=== PATIENT | female | born 2000 | race Caucasian/White ===

== ENCOUNTER 2023-12-29 11:09 | Outpatient (AMB) | payer MEDICAID, SELFPAY ==
[2023-12-29 11:26] VITALS: BP 126/62; PULSE 92; O2SAT 100; BMI 29.9
--- NOTE | 2023-12-29 11:26 | MHC.OFFVIS ---
Vital Signs 12/29/23 11:26 Height 5 ft 3 in Weight 169 lb BMI 29.9 BP 126/62 Blood Pressure Location Rt brachial Position Sitting Pulse 92 Pulse Source Pulse Oximeter Pulse Oximetry (%) 100 Oxygen Delivery Method Room Air Intake Visit Reasons: CHRONIC MYOFASCIAL PAIN Intake Note: Pain today 12/18 Principal Investigator Required: No Accompanied by: Self / Same As Patient Allergies duloxetine Allergy (Unknown, Verified 12/29/23 12:29) Depression gabapentin Allergy (Unknown, Verified 12/29/23 12:29) Nausea tamarind Allergy (Unknown, Verified 12/29/23 12:29) Unknown HPI Comments Details: Yas is a very pleasant 23-year-old who presents to the office today for diffuse joint pains. Has been suffering with this pain for 7 years. Started with knee pain and progressively worsened to all of the joints. Recently had blood work done with the PCP, positive [place]. Referred to Rheumatology and also referred to Neurology in [place]. Both of those appointments are pending. Complains of pain to shoulders, elbows, hands, hips, knees, ankles and back. Pain is worse with activity, walking. Currently uses a Rollator walker and has a generic wheelchair but is requesting referral to be fitted for customize wheelchair. States not able to do activities of daily living in recreational activities that involve walking for extended periods of times. This causes too much discomfort so will avoid these activities and stay home instead. Is aware that lack of mobility is worse case scenario and using a wheelchair would be detrimental. States that is not the intention, would just like it to be available on an as needed basis. Suffering mentally and emotionally when they have to avoid activities with her friends and involve lots of walking like going to do or visiting [place]. Patient has a currently attending physical therapy at [facility]. Has one-week left. Reports minimal improvement in symptoms Has tried topical patches, ice, heat, CBD, NSAIDs all without improvement. Tried gabapentin but was unable to tolerate as it caused vertigo. Duloxetine caused depression. In terms of muscle damage condition is described aching, shooting, cramping, stabbing, sharp, tiring, exhausting, tingling, pins and needles Pain is negatively impacting patient's enjoyment of life, general activity, mood, normal work, recreational activities, relationships with people and walking [facility] Medical History (Updated 12/29/23 @ 16:21 by Deysi Gamboa, ANCHORMAN, HAND PRINTED CIRCUIT BOARD ASSEMBLER) OCD (obsessive compulsive disorder) PTSD (post-traumatic stress disorder) Anxiety disorder Social History (Updated 12/29/23 @ 12:53 by Ana Maria Muhammad) Alcohol intake: current Alcohol intake frequency: a few times a month Substance Use Type: Marijuana Review of Systems Const All systems reviewed & are unremarkable except as noted in HPI and below Physical Exam Vital Signs: Last Vital Signs Pulse 92 12/29/23 11:26 BP 126/62 12/29/23 11:26 Pulse Ox 100 12/29/23 11:26 Oxygen Delivery Method Room Air 12/29/23 11:26 BMI result Body Mass Index 29.9 General: awake, alert, oriented. Answers questions appropriately. Fully engaged in examination. Skin: warm, dry, intact HEENT: Normocephalic. Hearing intact. Cardiac: External chest normal in appearance. Respiratory: No cough, audible wheezing or stridor. Abdomen: without gross distension. MS: No obvious swelling or deformities. Able to stand on bilateral tiptoes and bilateral heels.? Able to transition from sit to stand unassisted. Ambulates with bilaterally normal heel strike and toe off 16/18 fibromyalgia tender points positive Neurological: Oriented to person, place, time and situation. Thought process intact. Ambulates with Rollator walker Psychiatric: Appropriate mood and affect. Good judgment and insight. Assessment & Plan Assessment & Plan (1) Myofascial pain syndrome: Code(s): M79.18 - Myalgia, other site Category: Medical (2) POTS (postural orthostatic tachycardia syndrome): Code(s): G90.A - Postural orthostatic tachycardia syndrome [POTS] Category: Medical (3) Polyarthralgia: Code(s): M25.50 - Pain in unspecified joint Category: Medical Plan Patient is a very pleasant 23-year-old adult who presented to the office today for evaluation and management of diffuse polyarthralgia. Continue with PT, aquatherapy and working out at the gym Trial baclofen 5 mg p.o. t.i.d.. Currently it is wheelchair as needed, is requesting referral for custom fitting for a specialized wheelchair. Patient will contact the physical therapy place and have them send over the information for this referral. Lengthy discussion with patient and counseled against the use of wheelchair. Patient like to have this to aid if certain activities of daily living was can not be performed without a wheelchair. States not use on a daily basis and will continue to be physically active. Referral placed to rheumatology for polyarthralgia with positive [place]. Follow up in the office after rheumatology eval, sooner if needed Orders: Referrals Rheumatology Referral M25.50 - Pain in unspecified joint, R76.8 - Other specified abnormal immunological findings in serum Medications: New baclofen 5 mg PO TID 90 tabs 3RF Coding Level of Care Code New Pt Level 4 (27720) Diagnoses Myofascial pain syndrome M79.18 POTS (postural orthostatic tachycardia syndrome) G90.A Polyarthralgia M25.50
== END 2023-12-29 12:13 | disposition home or self-care (01) ==
PROVIDERS: PCP Pediatrics; Referring Provider Pediatrics; Visit Provider Registered Nurse Emergency
DX: M79.18 Myalgia, other site (principal); G90.A Postural orthostatic tachycardia syndrome [POTS]; M25.50 Pain in unspecified joint
CPT/HCPCS: 99204

== ENCOUNTER → 2023-12-29 11:09 | Outpatient (BNVA) | payer MEDICAID, SELFPAY | PROVIDERS: PCP Pediatrics; Referring Provider Pediatrics; Visit Provider Registered Nurse Emergency | DX: M79.18 Myalgia, other site (principal); M25.50 Pain in unspecified joint; G90.A Postural orthostatic tachycardia syndrome [POTS] | CPT/HCPCS: 99202 ==

== ENCOUNTER 2024-02-01 14:59 | Outpatient (AMB) | payer MEDICAID, SELFPAY ==
[2024-02-01 15:08] VITALS: BP 123/80; PULSE 85; O2SAT 100; BMI 30.5
--- NOTE | 2024-02-01 15:08 | A.OFFVIS_ITS ---
Vital Signs 02/01/24 15:08 Height 5 ft 3 in Weight 172 lb BMI 30.5 BP 123/80 Blood Pressure Location Rt brachial Position Sitting Pulse 85 Pulse Source Pulse Oximeter Pulse Oximetry (%) 100 Oxygen Delivery Method Room Air Intake Visit Reasons: Medication Follow Up Allergies duloxetine Allergy (Unknown, Verified 12/29/23 12:29) Depression gabapentin Allergy (Unknown, Verified 12/29/23 12:29) Nausea tamarind Allergy (Unknown, Verified 12/29/23 12:29) Unknown HPI Comments Details: Yas presents back to the office today for follow-up. She has been using the 10s unit with improvement of her pain. But states it makes it difficult as she can only treat 1 area at a time. Endorses pain ?everywhere?. Requesting a letter for work allowing use of wheelchair while there Inquiring about people work the office should have received from seating and mobility. Has been taking baclofen without improvement of her symptoms. She would like to try a different muscle relaxer. Has never attempted acupuncture but would be willing to try. She is not sure if this is covered by her insurance. Prior: Yas is a very pleasant 23-year-old who presents to the office today for diffuse joint pains. Has been suffering with this pain for 7 years. Started with knee pain and progressively worsened to all of the joints. Recently had blood work done with the PCP, positive [place]. Referred to Rheumatology and also referred to Neurology in [place]. Both of those appointments are pending. Complains of pain to shoulders, elbows, hands, hips, knees, ankles and back. Pain is worse with activity, walking. Currently uses a Rollator walker and has a generic wheelchair but is requesting referral to be fitted for customize wheelchair. States not able to do activities of daily living in recreational activities that involve walking for extended periods of times. This causes too much discomfort so will avoid these activities and stay home instead. Is aware that lack of mobility is worse case scenario and using a wheelchair would be detrimental. States that is not the intention, would just like it to be available on an as needed basis. Suffering mentally and emotionally when they have to avoid activities with her friends and involve lots of walking like going to do or visiting [place]. Patient has a currently attending physical therapy at [facility]. Has one-week left. Reports minimal improvement in symptoms Has tried topical patches, ice, heat, CBD, NSAIDs all without improvement. Tried gabapentin but was unable to tolerate as it caused vertigo. Duloxetine caused depression. In terms of muscle damage condition is described aching, shooting, cramping, stabbing, sharp, tiring, exhausting, tingling, pins and needles Pain is negatively impacting patient's enjoyment of life, general activity, mood, normal work, recreational activities, relationships with people and walking [facility] Medical History (Updated 12/29/23 @ 16:21 by Deysi Gamboa FIELD MECHANICAL METER TESTER, UNHAIRING INSPECTOR) OCD (obsessive compulsive disorder) PTSD (post-traumatic stress disorder) Anxiety disorder Social History (Updated 12/29/23 @ 12:53 by Ana Maria Muhammad) Alcohol intake: current Alcohol intake frequency: a few times a month Substance Use Type: Marijuana Review of Systems Const All systems reviewed & are unremarkable except as noted in HPI and below Physical Exam Vital Signs: Last Vital Signs Pulse 85 02/01/24 15:08 BP 123/80 02/01/24 15:08 Pulse Ox 100 02/01/24 15:08 Oxygen Delivery Method Room Air 02/01/24 15:08 BMI result Body Mass Index 30.5 General: awake, alert, oriented. Answers questions appropriately. Fully engaged in examination. Skin: warm, dry, intact HEENT: Normocephalic. Hearing intact. Cardiac: External chest normal in appearance. Respiratory: No cough, audible wheezing or stridor. Abdomen: without gross distension. MS: No obvious swelling or deformities. Able to stand on bilateral tiptoes and bilateral heels.? Able to transition from sit to stand unassisted. Ambulates with bilaterally normal heel strike and toe off 18 fibromyalgia tender points positive Neurological: Oriented to person, place, time and situation. Thought process intact. Ambulates with Rollator walker Psychiatric: Appropriate mood and affect. Good judgment and insight. Assessment & Plan Assessment & Plan (1) Myofascial pain syndrome: Code(s): M79.18 - Myalgia, other site Category: Medical (2) POTS (postural orthostatic tachycardia syndrome): Code(s): G90.A - Postural orthostatic tachycardia syndrome [POTS] Category: Medical (3) Polyarthralgia: Code(s): M25.50 - Pain in unspecified joint Category: Medical Plan Patient is a very pleasant 23-year-old adult who presented to the office today for evaluation and management of diffuse polyarthralgia. Work letter provided allowing use of wheelchair. Review of chart, no paperwork has been received from [employer]. Patient was advised. She will reach out to that company and requested it be recent. Discontinue baclofen. New Rx tizanidine 2 mg p.o. t.i.d. patient advised on cautions for use. Discontinue baclofen before starting this medication. Monitor blood pressure closely. Do not take while driving or with other COMPUTER SUPPORT ANALYST suppressants. Patient will call her insurance company to inquire about acupuncture coverage. She will reach out to our office with a covered acupuncture provider and referral will be sent. All questions and concerns were answered, patient agrees to the plan. Follow up in 2 months, sooner if needed Medications: New tizanidine Monitor blood pressure carefully. No driving while taking this medication. May cause drowsiness. Do not take with alcohol or other COMPUTER SUPPORT ANALYST Depressants. Discontinue use of baclofen before starting this medication. 2 mg PO TID PRN 90 tabs 1RF muscle spasticity Discontinued baclofen Discontinued Reason: More recent result 5 mg PO TID 90 tabs 3RF Coding Level of Care Code Est Pt Level 3 (60030) Diagnoses Myofascial pain syndrome M79.18 POTS (postural orthostatic tachycardia syndrome) G90.A Polyarthralgia M25.50
== END 2024-02-01 15:49 | disposition home or self-care (01) ==
PROVIDERS: PCP Pediatrics; Visit Provider Registered Nurse Emergency
DX: M79.18 Myalgia, other site (principal); G90.A Postural orthostatic tachycardia syndrome [POTS]; M25.50 Pain in unspecified joint
CPT/HCPCS: 99213

== ENCOUNTER → 2024-02-01 14:59 | Outpatient (BNVA) | payer MEDICAID, SELFPAY | PROVIDERS: PCP Pediatrics; Visit Provider Registered Nurse Emergency | DX: M79.18 Myalgia, other site (principal); M25.50 Pain in unspecified joint; G90.A Postural orthostatic tachycardia syndrome [POTS] | CPT/HCPCS: 99212 ==

== ENCOUNTER 2024-10-10 09:56 | Outpatient (AMB) | payer MEDICAID, SELFPAY ==
[2024-10-10 10:02] VITALS: BP 102/60; BMI 31.9
--- NOTE | 2024-10-10 10:02 | MHC.OFFVIS ---
Vital Signs 10/10/24 10:02 Height 5 ft 3 in Weight 180 lb BMI 31.9 BP 102/60 Blood Pressure Location Lt brachial Position Sitting Intake Visit Reasons: Pain increasing/meds FU Cost Accounting Analyst Required: No Allergies duloxetine Allergy (Unknown, Verified 10/10/24 10:04) Depression gabapentin Allergy (Unknown, Verified 10/10/24 10:04) Nausea tamarind Allergy (Unknown, Verified 10/10/24 10:04) Unknown HPI Comments Details: The patient is a 24-year-old female presenting with pain management concerns. She reports chronic pain inadequately managed with her current regimen of tizanidine at 2 mg twice daily, noting increased pain on days she forgets her medication. Upon review of treatment history, gabapentin was discontinued due to significant side effects, including dizziness and vomiting, while baclofen was previously ineffective. Lyrica or pregabalin have not been tried. The patient has chronic fatigue syndrome, and her fatigue remains persistent, though it is unclear if the current medication contributes to this symptom. The goal of today?s visit is to enhance pain management while minimizing disruptions to her daily routine, particularly as she continues her studies. - Onset: Ongoing chronic pain - Timing: Chronic, persistent; worsened significantly on missed medication days - Aggravating Factors: Missing doses of tizanidine - Alleviating Factors: Taking tizanidine provides partial relief - Interference with Activities: Impacts daily functioning; coordination with academic responsibilities is necessary - Affect: Reports chronic pain and chronic fatigue syndrome affecting her daily life - Analgesia: Current medication is tizanidine 2 mg twice daily; reported pain level suboptimal, potentially improved with increased dose - Adverse Effects: Previous adverse effects with gabapentin including dizziness and vomiting; no significant adverse effects reported with current tizanidine use - Activities of Daily Living: Chronic pain and fatigue impact daily functioning; seeks enhanced management to align with academic commitments - Aberrant Drug Related Behaviors: No indications of misuse provided Prior: Yas presents back to the office today for follow-up. She has been using the 10s unit with improvement of her pain. But states it makes it difficult as she can only treat 1 area at a time. Endorses pain ?everywhere?. Requesting a letter for work allowing use of wheelchair while there Inquiring about people work the office should have received from [employer]. Has been taking baclofen without improvement of her symptoms. She would like to try a different muscle relaxer. Has never attempted acupuncture but would be willing to try. She is not sure if this is covered by her insurance. Prior: Yas is a very pleasant 23-year-old who presents to the office today for diffuse joint pains. Has been suffering with this pain for 7 years. Started with knee pain and progressively worsened to all of the joints. Recently had blood work done with the PCP, positive [place]. Referred to Rheumatology and also referred to Neurology in [place]. Both of those appointments are pending. Complains of pain to shoulders, elbows, hands, hips, knees, ankles and back. Pain is worse with activity, walking. Currently uses a Rollator walker and has a generic wheelchair but is requesting referral to be fitted for customize wheelchair. States not able to do activities of daily living in recreational activities that involve walking for extended periods of times. This causes too much discomfort so will avoid these activities and stay home instead. Is aware that lack of mobility is worse case scenario and using a wheelchair would be detrimental. States that is not the intention, would just like it to be available on an as needed basis. Suffering mentally and emotionally when they have to avoid activities with her friends and involve lots of walking like going to do or visiting [place]. Patient has a currently attending physical therapy at [facility]. Has one-week left. Reports minimal improvement in symptoms Has tried topical patches, ice, heat, CBD, NSAIDs all without improvement. Tried gabapentin but was unable to tolerate as it caused vertigo. Duloxetine caused depression. In terms of muscle damage condition is described aching, shooting, cramping, stabbing, sharp, tiring, exhausting, tingling, pins and needles Pain is negatively impacting patient's enjoyment of life, general activity, mood, normal work, recreational activities, relationships with people and walking [facility] Medical History (Updated 12/29/23 @ 16:21 by Deysi Gamboa APRN, ENTERPRISE APPLICATION ARCHITECT) OCD (obsessive compulsive disorder) PTSD (post-traumatic stress disorder) Anxiety disorder Social History (Updated 10/10/24 @ 10:05 by Zeinab Gaspar Javed) Alcohol intake: current Alcohol intake frequency: a few times a month Patient Tobacco Use Status: Never used Tobacco Substance Use Type: Marijuana Review of Systems Const Details: - Neurological: Reports chronic fatigue syndrome - Systemic: Denies worsening of fatigue attributable directly to tizanidine Physical Exam Vital Signs: Last Vital Signs BP 102/60 10/10/24 10:02 BMI result Body Mass Index 31.9 General: awake, alert, oriented. Answers questions appropriately. Fully engaged in examination. Skin: warm, dry, intact HEENT: Normocephalic. Hearing intact. Cardiac: External chest normal in appearance. Respiratory: No cough, audible wheezing or stridor. Abdomen: without gross distension. MS: No obvious swelling or deformities. Able to transition from sit to stand unassisted. Neurological: Oriented to person, place, time and situation. Thought process intact. Ambulates with use of forearm crutch Psychiatric: Appropriate mood and affect. Good judgment and insight. Assessment & Plan Assessment & Plan (1) Myofascial pain syndrome: Code(s): M79.18 - Myalgia, other site Category: Medical (2) POTS (postural orthostatic tachycardia syndrome): Code(s): G90.A - Postural orthostatic tachycardia syndrome [POTS] Category: Medical (3) Polyarthralgia: Code(s): M25.50 - Pain in unspecified joint Category: Medical Plan The current plan is to improve the patient's pain management by increasing the dosage of tizanidine to 4 mg, with directions to take it up to three times daily based on her needs. This strategy takes into consideration her ongoing challenges with chronic pain and her work responsibilities. The patient is advised to begin this increased dose over the weekend to assess tolerance and avoid potential fatigue impacts during work hours. Her past negative experiences with gabapentin and ineffective pain control with baclofen were considered in selecting this plan. The tolerability and effectiveness of the increased dosage will be monitored, with adjustments made depending on its impact on her pain and daily functional activities. No additional medications such as pregabalin are being tried at this time. During the visit, I discussed with the patient the need to enhance her current pain management regimen due to ongoing inadequate pain control. We reviewed her history of adverse reactions to gabapentin and unsatisfactory relief with baclofen and decided against introducing new medications like pregabalin at this point. I recommended increasing the tizanidine dosage, explaining how this could improve her pain management while considering her chronic fatigue syndrome. I advised her to monitor the effects of the new dosage over the weekend to prevent disruptions during her school week. She agreed to this plan with the acknowledgment that she can modify based on response, and contact me if she experiences intolerable side effects or requires further adjustment. Patient was informed and verbally consented to the use of an ambient scribe for clinic note documentation during this visit. Medications: Changed From tizanidine Monitor blood pressure carefully. No driving while taking this medication. May cause drowsiness. Do not take with alcohol or other BUSINESS SUPPORT COORDINATOR Depressants. Discontinue use of baclofen before starting this medication. 2 mg PO TID PRN 90 tabs 1RF muscle spasticity To tizanidine Monitor blood pressure carefully. No driving while taking this medication. May cause drowsiness. Do not take with alcohol or other BUSINESS SUPPORT COORDINATOR Depressants. 4 mg PO TID PRN 90 tabs 6RF muscle spasticity Patient Instructions: - Begin taking tizanidine 4 mg starting this weekend - Take the medication up to three times a day as needed for pain control - Monitor for side effects like increased fatigue or drowsiness - Report any adverse effects or need for further adjustments in dosage - Contact me if the increased dose is not effective or causes intolerable side effects - Continue attending classes and observe how the new regimen affects fatigue and academic performance Coding Level of Care Code Est Pt Level 3 (22194) Complex EM visit Add On G2211 Diagnoses Myofascial pain syndrome M79.18 POTS (postural orthostatic tachycardia syndrome) G90.A Polyarthralgia M25.50
--- OUTSIDE RECORDS SUMMARY | 2024-10-10 11:22 | XMS_ITS | Encounter Summary ---
Author Organization [facility] Address [address] [place] [id number] Care Team Providers Care Director Advanced Name Role Phone Dixie Huang MD Primary Care Provider [phone] Hernandez Adams MD Primary Care Provider [phone] Maksim Ray PA-C Unavailable [phone] Reason for Visit * Reason Comments Medication Refill Encounter Details Date Type Department Care Team (Late st Contact Info) Description 07/07/[address] [facility] [address] [place] [phone] Bharat Jo MD [address] [place] [phone] Mild persistent asthma without complication Social History Tobacco Use Types Packs/Day Years Used Date Smoking Tobacco: Never Smokeless Tobacco: Never Sex and Gender Information Value Date Recorded Sex Assigned at Not on file Gender Identity Female 10/09/2020 1:55 PM EDT Sexual Orientation Not on file documented as of this encounter Plan of Treatment Upcoming Encounters Date Type Department Care Team (Late st Contact Info) Description 12/04/2024 11:30 AM EDT Appointment [facility] [place] [facility] - Cardiology [address] [place] [phone] Maksim Ray PA-C [address] [place] [phone] documented as of this encounter Visit Diagnoses Diagnosis Mild persistent asthma without complication documented in this encounter Care Teams Director Advanced Relationship Specialty Start Date End Date Dixie Huang MD [address] [place] [address] PCP - General 06/29/11 06/14/22 Hernandez Adams MD [address] [address] PCP - General Pediatric, General 06/15/22 Maksim Ray PA-C [address] [place] [id number] Physician Flying Instructor Cardiac Electrophysiology 01/06/24 documented as of this encounter
--- OUTSIDE RECORDS SUMMARY | 2024-10-10 11:22 | XMS_ITS | Encounter Summary ---
Author Organization [facility] Address [address] [place] [address] Care Team Providers Care Salesperson China And Glassware Name Role Phone Dixie Huang MD Primary Care Provider [phone] Hernandez Adams MD Primary Care Provider [phone] Maksim Ray PA-C Unavailable + [phone] Reason for Visit * Reason Comments Medication Refill Encounter Details Date Type Department Care Team (Late st Contact Info) Description 11/23/[address] [facility] [address] [place] [phone] Bharat Jo MD [address] [place] [address] [phone] Mild persistent asthma without complication Social History [...] Info) Description 12/04/2024 11:30 AM EDT Appointment [facility] Heart & Vascular [place] at [facility] - Cardiology [address] [place] [phone] Maksim Ray PA-C [address] [place] [address] documented as of this encounter Visit Diagnoses Diagnosis Mild persistent asthma without complication documented in this encounter Care Teams Salesperson [employer] Glass[employer] Relationship Specialty Start Date End Date Dixie Huang MD [address] [place] [address] PCP - General 06/29/11 06/14/22 Hernandez Adams MD [address] [place] [address] [address] PCP - General Pediatric, General 06/15/22 Maksim Ray PA-C [address] [place] [address] Physician Gathering Worker Cardiac Electrophysiology 01/06/24 documented as of this encounter
--- OUTSIDE RECORDS SUMMARY | 2024-10-10 11:22 | XMS_ITS | Encounter Summary ---
Author Organization [facility] Address [address] [place] [address] Care Team Providers Care Pairing Machine Operator Name Role Phone Dixie Huang MD Primary Care Provider [phone] Hernandez Adams MD Primary Care Provider [phone] Maksim Ray PA-C Unavailable + [phone] Reason for Visit * Reason Comments Medication Refill Encounter Details Date Type Department Care Team (Late st Contact Info) Description 11/16/[address] [facility] [address] [place] [phone] Bharat Jo MD [address] [place] [phone] Mild persistent asthma without complication Social History [...] Info) Description 12/04/2024 11:30 AM EDT Appointment [facility] Heart & Vascular [place] at [facility] - Cardiology [address] [place] [phone] Maksim Ray PA-C [address] [place] [address] documented as of this encounter Visit Diagnoses Diagnosis Mild persistent asthma without complication documented in this encounter Care Teams Pairing Machine Operator Relationship Specialty Start Date End Date Dixie Huang MD [address] [place] [address] PCP - General 06/29/11 06/14/22 Hernandez Adams MD 22 [place] [address] [address] PCP - General Pediatric, General 06/15/22 Maksim Ray PA-C [address] [place] [address] Physician Orchid Hand Cardiac Electrophysiology 01/06/24 documented as of this encounter
--- OUTSIDE RECORDS SUMMARY | 2024-10-10 11:22 | XMS_ITS | Patient Health Record ---
Author Organization [facility] Address [address] [address] Care Team Providers Care Technical Writing Lead/Mgr Name Role Phone aaaNone, None Primary Care Provider Unavailabl e ALLERGIES Allergen (clinical drug ingredient) Drug/Non Drug Allergy documented on EMR Reaction Allergy Type Onset Date Status hot sauce (uncoded) Other adverse reaction Allergy Active REASON FOR REFERRAL No Information PLAN OF TREATMENT No Information Insurance Providers Payer Name Payer Address Payer Phone Subscriber Number Group Number Insured Name Patient Relationship to Insured Coverage Start Date Coverage End Date [facility] [employer] [address] [place], [place] [id number] Yas Sheridan Self - patient is the insured 1 MEDICAL (GENERAL) HISTORY Medical History History ICD Code Asthma J45.909
--- OUTSIDE RECORDS SUMMARY | 2024-10-10 11:23 | XMS_ITS | Encounter Summary ---
Author Organization [facility] Address [address] [place] [address] Care Team Providers Care Paper Inspector Name Role Phone Dixie Huang MD Primary Care Provider [phone] Hernandez Adams MD Primary Care Provider [phone] Maksim Ray PA-C Unavailable + [phone] Reason for Visit * Reason Comments Medication Refill Encounter Details Date Type Department Care Team (Late st Contact Info) Description 05/28/[address] [facility] [address] [place] [phone] Bharat Jo MD [address] [place] [phone] Mild persistent asthma without complication Social [...] Info) Description 12/04/2024 11:30 AM EDT Appointment [facility] Heart & Vascular [place] at [facility] - Cardiology [address] [place] [phone] Maksim Ray PA-C [address] [place] [address] documented as of this encounter Visit Diagnoses Diagnosis Mild persistent asthma without complication documented in this encounter Care Teams Paper Inspector Relationship Specialty Start Date End Date Dixie Huang MD [address] [place] [address] PCP - General 06/29/11 06/14/22 Hernandez Adams MD [address] [place] [address] [address] PCP - General Pediatric, General 06/15/22 Maksim Ray PA-C [address] [place] [address] Physician Back Roll Lathe Operator Cardiac Electrophysiology 01/06/24 documented as of this encounter
--- OUTSIDE RECORDS SUMMARY | 2024-10-10 11:23 | XMS_ITS | Encounter Summary ---
Author Organization [facility] Address [address] [place] [address] Care Team Providers Care Ward Aide Name Role Phone Dixie Huang MD Primary Care Provider [phone] Hernandez Adams MD Primary Care Provider [phone] Maksim Ray PA-C Unavailable [phone] Reason for Visit * Reason Comments Medication Refill Encounter Details Date Type Department Care Team (Late st Contact Info) Description 03/02/[address] [facility] [address] [phone] Bharat Jo MD [address] [place] [phone] Mild persistent asthma without complication Social History Tobacco Use Types Packs/Day Years Used Date Smoking Tobacco: Never Assessed Sex and Gender Information Value Date Recorded Sex Assigned at Not on file Gender Identity Female 10/09/2020 1:55 PM EDT Sexual Orientation Not on file documented as of this encounter Plan of Treatment Upcoming Encounters Date Type Department Care Team (Late st Contact Info) Description 12/04/2024 11:30 AM EDT Appointment [facility] Heart & Vascular [place] at [facility] - Cardiology [address] [place] [phone] Maksim Ray PA-C [address] [place] [address] documented as of this encounter Visit Diagnoses Diagnosis Mild persistent asthma without complication documented in this encounter Care Teams Ward Aide Relationship Specialty Start Date End Date Dixie Huang MD [address] [place] [address] PCP - General 06/29/11 06/14/22 Hernandez Adams MD 22 [place] [facility] [address] [place] [address] PCP - General Pediatric, General 06/15/22 Maksim Ray PA-C [address] [place] [address] Physician Scarf And Anneal Operator Cardiac Electrophysiology 01/06/24 documented as of this encounter
--- OUTSIDE RECORDS SUMMARY | 2024-10-10 11:23 | XMS_ITS | Encounter Summary ---
Author Organization [facility] Address [address] [place] [address] Care Team Providers Care Materials And Corrosion Engineer Name Role Phone Dixie Huang MD Primary Care Provider [phone] Hernandez Adams MD Primary Care Provider [phone] Maksim Ray PA-C Unavailable [phone] Reason for Visit * Reason Comments Medication Refill Encounter Details Date Type Department Care Team (Late Contact Info) Description 05/18/[address] [facility] [address] [phone] Ness Beach PA-C [address] [place] [address] Moderate persistent asthma with acute exacerbation Social History Tobacco Use Types Packs/Day Years Used Date Smoking Tobacco: Never Smokeless Tobacco: Never Alcohol Use Standard Drinks/Week Comments Never 0 (1 standard drink = 0.6 oz pur e alcohol) AUDIT-C Answer Date Recorded Q1: How often do you have a drink containing alc ohol? Never 06/02/2020 Average Number of Drinks Not on file 020 Frequency of Binge Drinking Not on file 05/12 Sex and Gender Information Value Date Recorded Sex Assigned at Not on file Gender Identity Female 10/09/2020 1:55 PM EDT Sexual Orientation Not on file documented as of this encounter Plan of Treatment Upcoming Encounters Date Type Department Care Team (Late Contact Info) Description 12/04/2024 11:30 AM EDT Appointment [facility] Heart & Vascular [place] at [facility] - Cardiology [address] [place] [address] Maksim Ray PA-C [address] [place] [address] documented as of this encounter Visit Diagnoses Diagnosis Moderate persistent asthma with acute exacerbation documented in this encounter Care Teams Materials And Corrosion Engineer Relationship Specialty Start Date End Date Dixie Huang MD [address] [place] [address] PCP - General 06/29/11 06/14/22 Hernandez Adams MD [address] [place] [address] [address] PCP - General Pediatric, General 06/15/22 Maksim Ray PA-C [address] [place] [address] Physician Manager New Product Cardiac Electrophysiology 01/06/24 documented as of this encounter
--- OUTSIDE RECORDS SUMMARY | 2024-10-10 11:23 | XMS_ITS | Encounter Summary ---
Author Organization [facility] Address [address] [place] [address] Care Team Providers Care Stage Set Up Worker Name Role Phone Dixie Huang MD Primary Care Provider [phone] Hernandez Adams MD Primary Care Provider [phone] Maksim Ray PAMarco Unavailable [phone] Reason for Visit * Reason Comments Medication Refill Encounter Details Date Type Department Care Team (Late st Contact Info) Description 07/22/[address] [facility] [address] [phone] Bharat Jo MD [address] [place] [phone] Mild persistent asthma without complication Social [...] PM EDT Sexual Orientation Not on file COVID-19 Exposure Response Date Recorded In the last month, have you been in contact with someone who was confirmed or suspected to have Coronavirus / COVID-19? Unable to assess 06/25/2020 3:20 PM EST documented as of this encounter Plan of Treatment Upcoming Encounters Date Type Department Care Team (Late st Contact Info) Description 12/04/2024 11:30 AM EDT Appointment [facility] Heart & Vascular [place] at [facility] - Cardiology [address] [place] [address] Maksim Ray PA-C [address] [place] [address] documented as of this encounter Visit Diagnoses Diagnosis Mild persistent asthma without complication documented in this encounter Care Teams Stage Set Up Worker Relationship Specialty Start Date End Date Dixie Huang MD [address] [place], [place] PCP - General 06/29/11 06/14/22 Hernandez Adams MD [address] [place] [address] [address] PCP - General Pediatric, General 06/15/22 Maksim Ray PA-C [address] [place] [address] Physician Mortgage Protection Specialist Cardiac Electrophysiology 01/06/24 documented as of this encounter
--- OUTSIDE RECORDS SUMMARY | 2024-10-10 11:23 | XMS_ITS | Encounter Summary ---
Author Organization [facility] Address [address] [place] [address] Care Team Providers Care Laundry Operator Finishing Name Role Phone Dixie Huang MD Primary Care Provider [phone] Hernandez Adams MD Primary Care Provider [phone] Maksim Ray PA-C Unavailable [phone] Reason for Visit * Reason Comments Medication Refill Encounter Details Date Type Department Care Team (Late Contact Info) Description 07/09/2021 Refill CC [place] [facility] [address] [phone] Ness Beach PA-C [address] [place] [address] Mild persistent asthma without complication Social History [...] Info) Description 12/04/2024 11:[address] [facility] Heart & Vascular [place] at [facility] - Cardiology [address] [place] [address] Maksim Ray PA-C [address] [place] [address] documented as of this encounter Visit Diagnoses Diagnosis Mild persistent asthma without complication documented in this encounter Care Teams Laundry Operator Finishing Relationship Specialty Start Date End Date Dixie Huang MD [address] [place] [address] PCP - General 06/29/11 06/14/22 Hernandez Adams MD [address] [employer] [address] [address] PCP - General Pediatric, General 06/15/22 Maksim Ray PA-C [address] [place] [address] Physician Global Upstream Marketing Manager Cardiac Electrophysiology 01/06/24 documented as of this encounter
--- OUTSIDE RECORDS SUMMARY | 2024-10-10 11:23 | XMS_ITS | Encounter Summary ---
Author Organization [facility] Address [address] [place] [address] Care Team Providers Care Tool Inspector Name Role Phone Dixie Huang MD Primary Care Provider [phone] Hernandez Adams MD Primary Care Provider [phone] Maksim Ray PAMarco Unavailable [phone] Reason for Visit * Reason Comments Medication Refill Encounter Details Date Type Department Care Team (Late st Contact Info) Description 03/25/[address] [facility] [address] [phone] Bharat Jo MD [address] [place] [phone] Mild persistent asthma without complication Social [...] or suspected to have Coronavirus / COVID-19? No / Unsure 03/02/2021 10:43 AM EDT documented as of this encounter Plan of Treatment Upcoming Encounters Date Type Department Care Team (Late st Contact Info) Description 12/04/2024 11:30 AM EDT Appointment [facility] Heart & Vascular [place] at [facility] - Cardiology [address] [place] [address] Maksim Ray PA-C [address] [place] [address] documented as of this encounter Visit Diagnoses Diagnosis Mild persistent asthma without complication documented in this encounter Care Teams Tool Inspector Relationship Specialty Start Date End Date Dixie Huang MD [address] [place], [place] PCP - General 06/29/11 06/14/22 Hernandez Adams MD [address] [place] [address] [address] PCP - General Pediatric, General 06/15/22 Maksim Ray PA-C [address] [place] [address] Physician Educational Adviser Cardiac Electrophysiology 01/06/24 documented as of this encounter
--- OUTSIDE RECORDS SUMMARY | 2024-10-10 11:23 | XMS_ITS | Encounter Summary ---
Author Organization [facility] Address [address] [place] [address] Care Team Providers Care Kosher Inspector Name Role Phone Hernandez Adams MD Primary Care Provider [phone] Maksim Ray PA-C Unavailable [phone] Reason for Visit * Reason Comments Medication Refill Encounter Details Date Type Department Care Team (Late st Contact Info) Description 03/28/[address] [facility] [address] [phone] Ness Beach PA-C [address] [place] [phone] Moderate persistent asthma without complication Social History Tobacco [...] Info) Description 12/04/2024 11:30 AM EDT Appointment [facility] Heart & Vascular [place] at [facility] - Cardiology [address] [place] [address] Maksim Ray PA-C [address] [place] [address] documented as of this encounter Visit Diagnoses Diagnosis Moderate persistent asthma without complication documented in this encounter Care Teams Kosher Inspector Relationship Specialty Start Date End Date Hernandez Adams MD 22 [place] [facility] [address] [place] [address] PCP - General Pediatric, General 06/15/22 Maksim Ray PA-C [address] [place] [address] Physician Technical Services Librarian Cardiac Electrophysiology 01/06/24 documented as of this encounter
--- OUTSIDE RECORDS SUMMARY | 2024-10-10 11:23 | XMS_ITS | Encounter Summary ---
Author Organization [facility] Address [address] [place] [address] Care Team Providers Care Cpc Coder Name Role Phone Dixie Huang MD Primary Care Provider [phone] Hernandez Adams MD Primary Care Provider [phone] Maksim Ray PA-C Unavailable [phone] Reason for Visit * Reason Comments Medication Refill Encounter Details Date Type Department Care Team (Late st Contact Info) Description 05/04/[address] [facility] [address] [phone] Ness Beach PA-C [address] [place] [address] Mild persistent asthma without complication Social History [...] have Coronavirus / COVID-19? Unable to assess 04/27/2021 4:13 PM EDT documented as of this encounter Plan of Treatment Upcoming Encounters Date Type Department Care Team (Late st Contact Info) Description 12/04/2024 11:30 AM EDT Appointment [facility] Heart & Vascular [place] at [facility] - Cardiology [address] [place] [address] Maksim Ray PA-C [address] [place] [address] documented as of this encounter Visit Diagnoses Diagnosis Mild persistent asthma without complication documented in this encounter Care Teams Cpc Coder Relationship Specialty Start Date End Date Dixie Huang MD [address] [place], [place] PCP - General 06/29/11 06/14/22 Hernandez Adams MD 22 [place] [address] [address] PCP - General Pediatric, General 06/15/22 Maksim Ray PA-C [address] [place] [address] Physician Clerk Carrier Cardiac Electrophysiology 01/06/24 documented as of this encounter
--- OUTSIDE RECORDS SUMMARY | 2024-10-10 11:23 | XMS_ITS | Encounter Summary ---
Author Organization [facility] Address [address] [place] [address] Care Team Providers Care Sales Recruiter Name Role Phone Hernandez Adams MD Primary Care Provider [phone] Maksim Ray PA-C Unavailable [phone] Reason for Visit * Reason Comments Medication Refill Encounter Details Date Type Department Care Team (Late st Contact Info) Description 12/19/[address] [facility] [address] [phone] Ness Beach PA-C [address] [place] [phone] Moderate persistent asthma without complication Social History [...] 11:[address] [facility] Heart & Vascular [place] at [facility] - Cardiology [address] [place] [address] Maksim Ray PA-C [address] [place] [address] documented as of this encounter Visit Diagnoses Diagnosis Moderate persistent asthma without complication documented in this encounter Care Teams Sales Recruiter Relationship Specialty Start Date End Date Hernandez Adams MD 22 [place] [facility] [address] [place] [address] PCP - General Pediatric, General 06/15/22 Maksim Ray PA-C [address] [place] [address] Physician Pie Filling Mixer Cardiac Electrophysiology 01/06/24 documented as of this encounter
--- OUTSIDE RECORDS SUMMARY | 2024-10-10 11:23 | XMS_ITS | Encounter Summary ---
Author Organization [facility] Address [address] [place] [address] Care Team Providers Care Police Investigator Name Role Phone Dixie Huang MD Primary Care Provider [phone] Hernandez Adams MD Primary Care Provider [phone] Maksim Ray PA-C Unavailable [phone] Reason for Visit * Reason Comments Medication Refill Encounter Details Date Type Department Care Team (Late st Contact Info) Description 02/22/[address] [facility] [address] [phone] Bharat Jo MD [address] [place] [phone] Mild persistent asthma without complication Social [...] Info) Description 12/04/2024 11:30 AM EDT Appointment [facility] Heart & Vascular [place] at [facility] - Cardiology [address] [place] [phone] Maksim Ray PA-C [address] [place] [address] documented as of this encounter Visit Diagnoses Diagnosis Mild persistent asthma without complication documented in this encounter Care Teams Police Investigator Relationship Specialty Start Date End Date Dixie Huang MD [address] [place] [address] PCP - General 06/29/11 06/14/22 Hernandez Adams MD 22 [place] [facility] [address] [place] [address] PCP - General Pediatric, General 06/15/22 Maksim Ray PA-C [address] [place] [address] Physician Sky Line Yarder Cardiac Electrophysiology 01/06/24 documented as of this encounter
--- OUTSIDE RECORDS SUMMARY | 2024-10-10 11:23 | XMS_ITS ---
Author Name [facility] Organization Unknown History of Medication Use Medication Directions Dispensed Refills Start Date End Date Stat us DULoxetine (CYMBALTA) 30 MG capsule Take by mouth daily. 10/23/2023 01/06/2024 active EPIDUO 0.1-2.5 % external gel APPLY A THIN LAYER TO THE AFFECTED AREA(S) AFTER WASHING BY TOPICAL ROUTE ONCE DAILY FOR 30 DAYS 07/25/2017 active albuterol (PROVENTIL) (0.083%) 2.5 mg/3 mL nebulizer solution Take 3 mL (2.5 mg total) by nebulization 4 times daily (every 6 hours) as needed for wheezing. 07/12/2018 01/06/2024 active midodrine (ProAmatine) 2.5 MG tablet Take 2 tablets (5 mg total) by mouth 3 (three) times a day. 10/20/2023 01/06/2024 active predniSONE (DELTASONE) 50 MG tablet Take 1 tablet (50 mg total) by mouth daily. With food. 08/12/2021 01/06/2024 aborted Problems Problem Status Onset Date Problem Type Date of Resoluti on Source Leg mass, left active 2021-01-21 [facility] Pain and swelling of ankle, left active 2020-12-23 [facility] Moderate persistent asthma active 2018-07-12 [facility] Immunizations Vaccine Date Source Lot Number Status Covid-19 MRNA Vaccine - Pfiz er 12+ (Purple Cap) 10/21/2020 [facility] [id number] completed Covid-19 MRNA Vaccine - Pfiz er 12+ (Purple Cap) 11/11/2020 [facility] [id number] completed Encounters Encounter Type Encounter Reason Primary Diagnosis Location Date Ambulatory Postural orthostatic tachycardia syndrome (POTS) Postural orthostatic tachycardia syndrome (POTS) [facility] 01/06/2024 Ambulatory Postural orthostatic tachycardia syndrome (POTS) Postural orthostatic tachycardia syndrome (POTS) [place] [facility] 12/07/2023 Ambulatory Moderate persist ent asthma, uncomplicated [facility] 06/15/2022 Ambulatory Unspecified asth ma, uncomplicated [facility] 08/14/2021 Emergency COVID-19 [place] [facility] 08/12/2021 Ambulatory COVID-19 [place] [facility] 08/12/2021 Ambulatory Moderate persist ent asthma with (acute) exacerbation [facility] 04/27/2021 Care Team Organization Name Specialty Phone Email Start Date End [facility] 05/12/2022 [facility] Dixie Huang Primary Care 08/14/2021 09/27/19 25 [facility] Adams [facility] 04/27/2021 022 [facility] Dixie Huang Primary Care 04/27/2021 08/12/19 22 [facility] PATTY Primary Care 04/02/2021 02/27/2024
--- OUTSIDE RECORDS SUMMARY | 2024-10-10 11:24 | XMS_ITS | Clinical Summary ---
Author Organization [facility] Address [address] [place] [address] Care Team Providers Care Xray Tech Name Role Phone Hernandez Adams MD Primary Care Provider [phone] Maksim Ray PA-C Unavailable [phone] Allergies Active Allergy Reactions Criticality Noted Date Comments Duloxetine Other (See Comments) 11/16/2023 depression Gabapentin Other (See Comments),Delirium/Confusion/Psy chosis,Nausea And Vomiting High 11/21/2023 Side effects Medications Medication Sig Dispensed Refills Start Date End Date Status EPIDUO 0.1-2.5 % external gel APPLY A THIN LAYER TO THE AFFECTED AREA(S) AFTER WASHING BY TOPICAL ROUTE ONCE DAILY FOR 30 DAYS 2 07/25/2017 Active tiotropium (Spiriva HandiHaler) 18 MCG inhalation capsuleIndications:M oderate persistent asthma without complication Place 1 capsule (18 mcg total) into inhaler and inhale daily. 90 capsule 1 06/15/2022 Active budesonide-formotero l (Symbicort) 160-4.5 MCG/ACT inhalerIndications:M oderate persistent asthma without complication TAKE 2 PUFFS BY MOUTH TWICE A DAY 3 each 3 06/15/2022 Active albuterol (PROVENTIL HFA; VENTOLIN HFA) 108 (90 Base) MCG/ACT inhalerIndications:M oderate persistent asthma without complication INHALE 2 PUFFS BY MOUTH EVERY 4 HOURS NEEDED FOR WHEEZING OR SHORTNESS OF BREATH 13.4 g 1 12/20/2022 Active propranolol (INDERAL) 10 MG tabletIndications:PO TS (postural orthostatic tachycardia syndrome) Take 1 tablet (10 mg total) by mouth 2 (two) times a day. 60 tablet 5 01/06/2024 Active ivabradine (CORLANOR) 5 MG tabletIndications:PO TS (postural orthostatic tachycardia syndrome) Take 1 tablet (5 mg total) by mouth 2 (two) times a day. 60 tablet 5 03/23/2024 Active Active Problems Problem Noted Date Diagnosed Date Leg mass, left 01/21/2021 Pain and swelling of ankle, left 12/23/2020 Moderate persistent asthma 07/12/2018 Immunizations Name Administration Dates Next Due Covid-19 MRNA Vaccine - Pfizer 12+ (Purple Cap) 11/11/2020,10/21/2020 Family History Relation Name Status Comments Father Alive Mother Alive Social History Tobacco Use Types Packs/Day Years Used Date Smoking Tobacco: Never Smokeless Tobacco: Never Tobacco Cessation:Counseling Given: Not Answered Alcohol Use Standard Drinks/Week Comments Never 0 [...] PM EDT Sexual Orientation Not on file Last Filed Vital Signs Vital Sign Reading Time Taken Comments Blood Pressure 102/63 12/07/2023 1:45 PM EDT Pulse 114 12/07/2023 1:45 PM EDT Temperature 36.6 ??C (97.9 ??F) 08/12/2021 8:44 PM ES T Respiratory Rate 16 08/12/2021 8:44 PM EST Oxygen Saturation 96% 12/07/2023 1:45 PM EDT Inhaled Oxygen Concentration - - Weight 77.1 kg (170 lb) 12/07/2023 1:45 PM EDT Height 160 cm (5' 3 ) 12/07/2023 1:45 PM EDT Body Mass Index 30.11 12/07/2023 1:45 PM EDT Plan of Treatment Upcoming Encounters Date Type Department Care Team (Late st Contact Info) Description 12/04/2024 11:30 AM EDT Appointment [facility] [place] [facility] - Cardiology [address] [place] [address] Maksim Ray PA-C [address] [place] [address] Health Maintenance Due Date Last Done Comments Hepatitis C Virus Screening 1999 HPV Vaccines (1 - 3-dose series) 2014 DTaP/Tdap/Td Vaccines (1 - Tdap) 2018 Hepatitis B Vaccines (1 of 3 - 19+ 3-dose series) 2018 Pneumococcal Vaccine: Pediat drake (0-5 Years) and At-Risk Patients (6 to 49 Years) (1 of 2 - PCV) 2018 Pap Smear (Ages 21-65) 2020 Influenza Vaccine 02/09/2024 04/15/2023, , 06/10/2021, Additional history exists COVID-19 Vaccine ( - 2023-2 5 season) 2024 11/11/2020, 10/21/2020 HIV Screening Completed 10/06/2023 Care Teams Xray Tech Relationship Specialty Start Date End Date Hernandez Adams MD [address] [place] [address] PCP - General Pediatric, General 06/15/22 Maksim Ray PA-C [address] [place] [address] Physician Equipment Installation Professional Cardiac Electrophysiology 01/06/24
== END 2024-10-10 10:20 | disposition home or self-care (01) ==
LOC: HO.PMC 09:56
PROVIDERS: PCP Pediatrics; Visit Provider Registered Nurse Emergency
DX: M79.18 Myalgia, other site (principal); G90.A Postural orthostatic tachycardia syndrome [POTS]; M25.50 Pain in unspecified joint
CPT/HCPCS: 99213; G2211

== ENCOUNTER → 2024-10-10 09:56 | Outpatient (BNVA) | payer MEDICAID, SELFPAY | PROVIDERS: PCP Pediatrics; Visit Provider Registered Nurse Emergency | DX: M79.18 Myalgia, other site (principal); M25.50 Pain in unspecified joint; G90.A Postural orthostatic tachycardia syndrome [POTS] | CPT/HCPCS: 99212 ==

== ENCOUNTER 2024-12-19 15:32 | Outpatient (AMB) | payer MEDICAID, SELFPAY ==
[2024-12-19 15:34] VITALS: BP 123/70; PULSE 84; O2SAT 98; BMI 31.9
--- NOTE | 2024-12-19 15:34 | MHC.OFFVIS ---
Vital Signs 12/19/24 15:34 Height 5 ft 3 in Weight 180 lb BMI 31.9 BP 123/70 Blood Pressure Location Lt brachial Position Sitting Pulse 84 Pulse Source Pulse Oximeter Pulse Oximetry (%) 98 Oxygen Delivery Method Room Air Intake Visit Reasons: Discuss Medication Side Effects Environmental Services Coordinator Required: No Allergies duloxetine Allergy (Unknown, Verified 12/19/24 15:38) Depression gabapentin Allergy (Unknown, Verified 12/19/24 15:38) Nausea tamarind Allergy (Unknown, Verified 12/19/24 15:38) Unknown HPI Comments Details: The patient is a 24-year-old female presenting with adverse effects from Tizanidine and ineffective pain management. She reports excessive sedation with the current Tizanidine dosage of 4 mg three times daily. Due to this, she experiences difficulty functioning at work and needs prolonged daytime sleep, impacting her professional life. Consequently, she has minimized her intake to once daily; however, sedation persists. In her treatment history, Gabapentin has caused severe vomiting, dizziness, and confusion, while Duloxetine led to vertigo. She has explored various other medications, with minimal relief from Baclofen, and considerable sedation with Tizanidine at therapeutic doses. - Onset and Timing: Chronic pain with medication-induced sedation. - Quality and Character: High sedative response to Tizanidine; past medications causing dizziness, vomiting, or vertigo. - Location: Fast-acting relief required, sedation experienced systemically. - Exacerbating: Sedation worsened with current Tizanidine dose. - Relieving: Reduction in Tizanidine dose to once daily, though still sedative. - Affect: Significant impact on work-life due to extreme sedation. - Analgesia: Current regimen includes Tizanidine reduced to 1x/day. - Adverse Effects: Excessive sedation, vomiting, dizziness, vertigo. - Activities of Daily Living: Interference due to sedation from medication. - Aberrant Behaviors: Titrating medication due to severe side effects. [facility] Medical History (Updated 12/29/23 @ 16:21 by Deysi Gamboa APRN, RECORDING STUDIO SETUP WORKER) OCD (obsessive compulsive disorder) PTSD (post-traumatic stress disorder) Anxiety disorder Social History (Updated 10/10/24 @ 10:05 by Zeinab Gaspar [facility]) Alcohol intake: current Alcohol intake frequency: a few times a month Patient Tobacco Use Status: Never used Tobacco Substance Use Type: Marijuana Review of Systems Const Details: - Neurological: Reports excessive sedation, dizziness, vertigo. - Gastrointestinal: Reports vomiting with previous medications (Gabapentin). Physical Exam Vital Signs: Last Vital Signs Pulse 84 12/19/24 15:34 BP 123/70 12/19/24 15:34 Pulse Ox 98 12/19/24 15:34 Oxygen Delivery Method Room Air 12/19/24 15:34 BMI result Body Mass Index 31.9 General: awake, alert, oriented. Answers questions appropriately. Fully engaged in examination. Skin: warm, dry, intact HEENT: Normocephalic. Hearing intact. Cardiac: External chest normal in appearance. Respiratory: No cough, audible wheezing or stridor. Abdomen: without gross distension. MS: No obvious swelling or deformities. Able to transition from sit to stand unassisted. Neurological: Oriented to person, place, time and situation. Thought process intact. Ambulates with use of forearm crutch Psychiatric: Appropriate mood and affect. Good judgment and insight. Assessment & Plan Assessment & Plan (1) Myofascial pain syndrome: Code(s): M79.18 - Myalgia, other site Category: Medical (2) POTS (postural orthostatic tachycardia syndrome): Code(s): G90.A - Postural orthostatic tachycardia syndrome [POTS] Category: Medical (3) Polyarthralgia: Code(s): M25.50 - Pain in unspecified joint Category: Medical Plan To manage the adverse effects of Tizanidine, the medication will be tapered off due to its sedative effects. A trial of methocarbamol, preferred for its lower sedative profile, is planned once coverage is confirmed. We discuss trialing Pregabalin if methocarbamol falls short, opting to start in low-risk settings to monitor for potential adverse responses. The plan includes close monitoring and a prompt review if side effects emerge to safeguard functional efficacy. I discussed with the patient that tapering off Tizanidine is necessary. The risks of starting both methocarbamol and Lyrica are considered, offering mechanisms of action and benefit levels. Minimal sedation and continued pain management are prioritized. We deliberated risk mitigation by initiating medications on weekends, ceasing it if adverse effects parallel past incidents. All alternatives are proposed in light of insurance availability. The need for cautious trial settings, avoiding risk to her work-life balance, was emphasized. Patient was informed and verbally consented to the use of an ambient scribe for clinic note documentation during this visit. Medications: New methocarbamol Discontinue use of tizanidine No driving while taking this medication. Do no take with alcohol or other ANIMAL CARE ASSISTANT Depressants 500 mg PO TID PRN 90 tabs 1RF muscle spasm Discontinued tizanidine Discontinued Reason: Doctor's Order 4 mg PO TID 270 tabs 0RF Patient Instructions: - Gradually reduce Tizanidine dosage as instructed and cease. - Start methocarbamol trial, monitor for sedation or other adverse effects. - Begin new medications on weekends and halt if severe side effects occur. - Provide update notice through patient portal or telephone for follow-up care. - Avoid driving if experiencing medication-related sedation. Coding Level of Care Code Est Pt Level 3 (01715) Complex EM visit Add On G2211 Diagnoses Myofascial pain syndrome M79.18 POTS (postural orthostatic tachycardia syndrome) G90.A Polyarthralgia M25.50
--- OUTSIDE RECORDS SUMMARY | 2024-12-19 17:56 | XMS_ITS | Patient Health Record ---
Author Organization [facility] Address [address] [address] Care Team Providers Care Mechanical Specialist Name Role Phone aaaNone, None Primary Care Provider Unavailabl e Allergies Allergen (clinical drug ingredient) Drug/Non Drug Allergy documented on EMR Reaction Allergy Type Onset Date Status hot sauce (uncoded) Other adverse reaction Allergy Active Reason For Referral No Information Plan Of Treatment No Information Insurance Providers Payer Name Payer Address Payer Phone Subscriber Number Group Number Insured Name Patient Relationship to Insured Coverage Start Date Coverage End Date [place] [employer] [address] [place], [place] [id number] [phone] [id number] Yas Sheridan Self - patient is the insured 1 Medical (General) History Medical History History ICD Code Asthma J45.909
== END 2024-12-19 16:24 | disposition home or self-care (01) ==
LOC: HO.PMC 15:33
PROVIDERS: PCP Pediatrics; Visit Provider Registered Nurse Emergency
DX: M79.18 Myalgia, other site (principal); G90.A Postural orthostatic tachycardia syndrome [POTS]; M25.50 Pain in unspecified joint
CPT/HCPCS: 99213; G2211

== ENCOUNTER → 2024-12-19 15:32 | Outpatient (BNVA) | payer MEDICAID, SELFPAY | PROVIDERS: PCP Pediatrics; Visit Provider Registered Nurse Emergency | DX: M79.18 Myalgia, other site (principal); G90.A Postural orthostatic tachycardia syndrome [POTS]; M25.50 Pain in unspecified joint; T42.8X5A Adverse effect of antiparkinsonism drugs and other central muscle-tone depressants, initial encounter; R42 Dizziness and giddiness; F42.9 Obsessive-compulsive disorder, unspecified; F43.10 Post-traumatic stress disorder, unspecified; F41.9 Anxiety disorder, unspecified | CPT/HCPCS: 99212 ==